=== PATIENT | female | born 1960 | race Hispanic/Latino ===

== ENCOUNTER → 2024-06-26 09:18 | Outpatient (REF) | payer OTHER, SELFPAY | LOC: HWRAD 09:18 | PROVIDERS: ATTENDING PHYSICIAN Internal Medicine; FAMILY PHYSICIAN Student in an Organized Health Care Education/Training Program | DX: M81.0 Age-related osteoporosis without current pathological fracture (principal) | CPT/HCPCS: 77080 ==